=== PATIENT | male | born 1985 | race African-American/Black ===

== ENCOUNTER 2016-12-10 03:48 | Emergency (ER) | payer OTHER ==
--- NOTE | 2016-12-10 04:30 | ED Physician Documentation ---
Palpitations - HISTORIAN Historian: patient - HPI Stated Complaint: palpitations Chief Complaint: Palpitations Additional Information: hx of Afib. woke up with mildly strong, fast heart beat. Not currently. said he called nurse line and they told him to come in. last prev episode 1 year ago. no other symptoms. no pressure or pain. takes cardizem for rhythym control. Dr Lyndsay hogan dr. Onset: minutes Timing: sudden onset, gone now, resolved on arrival to ED Duration: occurs sporadically Context: sleep Quality: fast, pounding heart beat Associated Symptoms: none Worsened by:: nothing Further Comments: no - ROS CONST: no problems RESP: denies: productive cough, bloody cough GI/: denies: nausea, problems urinating MS/SKIN/LYMPH: denies: ankle swelling, calf pain EYES/ENT: none NEURO/PSYCH: none - SOCIAL HX Smoking History: non-smoker Alcohol Use: none Drug Use: none - FAMILY HX Family History: none - PAST HX Cardiac Disease: denies: CAD, AMI, angina, valvular disease, mitral prolapse Cardiac Rhythm Problems: A-fib. denies: PSVT Other History: hypertension, anxiety disorder Surgeries/Procedures: none Allergies/Adverse Reactions: Allergies Allergy/AdvReac Type Severity Reaction Status Date / Time No Known Allergies Allergy Verified 12/10/16 04:18 - VITAL SIGNS Vital Signs: Vital Signs Temp Pulse Resp BP Pulse Ox 98.1 F 75 20 151/89 98 12/10/16 03:48 12/10/16 03:48 12/10/16 03:48 12/10/16 03:48 12/10/16 03:48 - REVIEWED ASSESSMENTS Nursing Assessment Reviewed: Yes Vitals Reviewed: Yes ED Results Lab/Radiology - Orders Orders: ECG shows SR with 1st degree block. Palpitations Physical Exam - EXAM General Appearance: no distress EENT: ENT inspection normal, pharynx normal, no signs of dehydration NECK: normal inspection, supple. No: lymphadenopathy, carotid bruit RESPIRATORY: no respiratory distress, breath sounds nml, chest non-tender CVS: reg rate & rhythm, heart sounds normal, equal pulses, no murmur ABDOMEN: soft, no distension, non-tender SKIN: warm/dry, normal color EXTREMITIES: non-tender, no evidence of injury, no edema NEURO: oriented X3, mood/affect nml, cognition normal Discharge Clincal Impression: Intermittent palpitations, History of palpitations in adulthood, Anxiety Referrals: Murphy Umana MD [Primary Care Provider] - 2 Days Condition: Good Disposition: 01 HOME, SELF-CARE Decision to Admit: NO Date of Decison to Admit: 12/10/16 Decision Time: 04:34
[2016-12-10 04:54] VITALS: BP 147/81
== END 2016-12-10 04:46 | disposition home or self-care (01) ==
LOC: ED 03:48
DX: R00.2 Palpitations (principal); F41.9 Anxiety disorder, unspecified
CPT/HCPCS: 99283; S1016

== ENCOUNTER 2016-12-28 10:06 | Outpatient (CLI) | payer OTHER ==
[2016-12-28 10:57] LABS: eGFR (African) > 60; eGFR (Non-African) > 60
== END 2016-12-28 10:10 ==
LOC: LAB 10:06
PROVIDERS: ATTEND Family Medicine
DX: I10 Essential (primary) hypertension (principal)
CPT/HCPCS: 36415; 80048

== ENCOUNTER → 2017-02-09 | Outpatient (CLI) | payer OTHER | LOC: LAB 16:51 | PROVIDERS: ATTEND Physician Assistant | DX: Z11.3 Encounter for screening for infections with a predominantly sexual mode of transmission (principal) | CPT/HCPCS: 36415; 86703; 87491; 87591 ==

== ENCOUNTER 2017-07-26 10:44 | Outpatient (CLI) | payer OTHER ==
[2017-07-26 11:11] LABS: APPEARANCE,URINE CLEAR (CLEAR); COLOR,URINE YELLOW (YELLOW); OCCULT BLOOD,URINE NEGATIVE (NEGATIVE); PH URINE 5.5 (5.0 - 8.0); UROBILINOGEN URINE 0.2 Eu (0.2-1.0)
[2017-07-26 11:30] LABS: eGFR (African) > 60; eGFR (Non-African) > 60
[2017-07-26 18:11] LABS: BASO % 0.4 % (0.0-1.5); EOS % 2.3 % (0.0-6.8); LYMPH ABS # 2.04 thou/uL (0.60-4.00); MCH. 30.2 pg (28.0-34.0); MCV 91.2 fL (80.0-100.0); MONOCYTE % 7.2 % (0.0-11.0); MONOCYTE ABS # 0.46 thou/uL (0.00-0.90); PLATELET COUNT 358 thou/uL (130-400)
== END 2017-07-26 13:17 ==
LOC: LAB 10:44
PROVIDERS: ATTEND Family Medicine
DX: R53.82 Chronic fatigue, unspecified (principal); R73.9 Hyperglycemia, unspecified; R35.0 Frequency of micturition
CPT/HCPCS: 36415; 80053; 81002; 84443; 85025

== ENCOUNTER 2017-08-09 08:51 | Outpatient (CLI) | payer OTHER | END 2017-08-09 08:52 | LOC: LAB 08:51 | PROVIDERS: ATTEND Family Medicine | DX: R73.9 Hyperglycemia, unspecified (principal) | CPT/HCPCS: 36415; 83036 ==

== ENCOUNTER 2018-01-18 14:58 | Outpatient (CLI) | payer OTHER | END 2018-01-18 15:05 | disposition home or self-care (01) | LOC: LAB 14:58 | PROVIDERS: ATTEND Physician Assistant | DX: R73.9 Hyperglycemia, unspecified (principal); R30.0 Dysuria; Z11.3 Encounter for screening for infections with a predominantly sexual mode of transmission; R36.1 Hematospermia | CPT/HCPCS: 36415; 83036; 86694; 86703; 86780; 87086; 87491; 87591 ==

== ENCOUNTER 2018-01-18 15:54 | Outpatient (CLI) | payer OTHER | END 2018-01-18 15:59 | disposition home or self-care (01) | LOC: LABRHC 15:54 | PROVIDERS: ATTEND Physician Assistant | DX: Z53.9 Procedure and treatment not carried out, unspecified reason (principal) ==

== ENCOUNTER 2018-05-09 09:36 | Outpatient (CLI) | payer OTHER ==
[2018-05-09 10:13] LABS: eGFR (Non-African) > 60
== END 2018-05-09 09:38 ==
LOC: LAB 09:36
PROVIDERS: ATTEND Family Medicine
DX: R73.9 Hyperglycemia, unspecified (principal)
CPT/HCPCS: 36415; 80053; 83036

== ENCOUNTER 2018-11-15 14:12 | Outpatient (CLI) | payer OTHER ==
[2018-07-02 19:05] VITALS: BP 135/79
== END 2018-11-15 14:14 ==
LOC: LAB 14:12
PROVIDERS: ATTEND Family Medicine
DX: R73.9 Hyperglycemia, unspecified (principal)
CPT/HCPCS: 36415; 83036